=== PATIENT | female | born 1970 | race American Indian/Alaskan Native ===

== ENCOUNTER 2016-10-08 21:23 | Emergency (ER) | payer BC ==
[2016-10-09] MEDS ORDERED: VALIUM PO ONE (01:53)
[2016-10-09] MEDS ORDERED: TORADOL IM ONE (01:53)
--- NOTE | 2016-10-09 02:31 | Emergency Department Report ---
HPI - General Chief Complaint: Extremity Injury, Lower Time Seen by Provider: 10/09/16 01:20 - HPI HPI: 45-year-old female presents today with right calf muscle tenderness pelvis stepping off her doorstep. Patient states that she was stepping off her doorstep when she felt her muscle stretching and walking. Denies history of similar symptoms. Denies swelling. The patient describes her pain as a 4 out of 10 at rest and a 10 out of 10 with flexion of foot. Patient states that she has muscle spasms that come and go. Denies numbness, weakness, paresthesias. Denies fever, chills, nausea, vomiting, chest pain, shortness of breath, abdominal pain. Patient has history of hypertension and states that she currently takes lisinopril/HCTZ. Denies use of oral contraceptives, prolonged inactivity, history of blood clots or family history of blood clots. ED Past Medical Hx - Past Medical History Hx Hypertension: Yes - Surgical History Additional Surgical History: csection, tubal ligation - Social History Smoking Status: Never Smoker Substance Use Type: None ED Review of Systems ROS: Stated complaint: MUSCLE SPASMS Other details as noted in HPI Constitutional: denies: chills, fever, malaise Eyes: denies: eye pain ENT: denies: ear pain, throat pain, congestion Respiratory: denies: cough, shortness of breath, wheezing Cardiovascular: denies: chest pain, palpitations Endocrine: no symptoms reported Gastrointestinal: denies: abdominal pain, nausea, vomiting Musculoskeletal: myalgia Neurological: denies: headache, weakness, numbness, paresthesias Physical Exam - Physical Exam Vital Signs: Vital Signs 10/08/16 10/09/16 23:06 02:18 Temperature 98.9 F Pulse Rate 81 Respiratory 16 18 Rate Blood Pressure 141/90 O2 Sat by Pulse 100 Oximetry Physical Exam: GENERAL: The patient is well-developed and well-nourished. Patient is in NAD. HEAD: Normocephalic. Atraumatic. CHEST/LUNGS: Clear to auscultation throughout. HEART/CARDIOVASCULAR: Regular rate and rhythm. No murmurs, rubs or gallops. ABDOMEN: Abdomen is soft, nontender. No guarding or rebound tenderness. RIGHT LOWER EXTREMITY: Tenderness to palpation of proximal aspect of right calf. No edema or ecchymosis noted. The deformity noted. Normal sensation. Peripheral pulses intact. Capillary refill less than 2 seconds. ED Course Vital Signs 10/08/16 10/09/16 23:06 02:18 Temperature 98.9 F Pulse Rate 81 Respiratory 16 18 Rate Blood Pressure 141/90 O2 Sat by Pulse 100 Oximetry ED Medical Decision Making - Lab Data Vital Signs 10/08/16 10/09/16 23:06 02:18 Temperature 98.9 F Pulse Rate 81 Respiratory 16 18 Rate Blood Pressure 141/90 O2 Sat by Pulse 100 Oximetry - Medical Decision Making 45-year-old female presents today with right calf tenderness. Patient was given Valium and Toradol and reports minimal symptomatic relief. Consulted with Dr. Bermudez. A order form for Doppler ultrasound has been provided to the patient. Patient is recommended to have the ultrasound performed in the morning. Patient states that she will wait in the waiting room until 7 AM for the ultrasound. Patient is in no acute distress at this time. Critical care attestation.: If time is entered above; I have spent that time in minutes in the direct care of this critically ill patient, excluding procedure time. ED Disposition Clinical Impression: Calf tenderness Disposition: DISCHARGED TO HOME OR SELFCARE Is pt being admited?: No Does the pt Need Aspirin: No Condition: Stable Instructions: Deep Venous Thrombosis (ED), Muscle Strain (ED) Additional Instructions: Doppler ultrasound order form has been provided. Return to the emergency department at 7 AM for a right lower extremity Doppler ultrasound. Follow-up with primary care provider. Return to the emergency department if symptoms worsen. Referrals: FARHAT PERALTA MD [Primary Care Provider] - 3-5 Days Forms: Work/School Release Form(ED) Time of Disposition: 04:51
[2016-10-09 05:19] VITALS: BP 123/83
== END 2016-10-09 05:20 | disposition home or self-care (01) ==
LOC: ED 21:23
DX: M79.604 Pain in right leg (principal); M79.1 Myalgia; I10 Essential (primary) hypertension
CPT/HCPCS: 96372; 99282; J1885

== ENCOUNTER 2016-10-09 07:50 | Outpatient (CLI) | payer BC ==
--- NOTE | 2016-10-10 08:22 | Vascular Lab Report ---
Right Lower Extremity Venous Duplex Study: Reason for Exam: Leg pain. Comments on the Right: All veins visualized are freely compressible without evidence of internal echogenicity. Flow is spontaneous and phasic throughout. No evidence of acute or chronic thrombus is seen in any of the vessels visualized. Comments on the Left: A limited duplex study was done of the proximal veins of the left lower extremity. All veins visualized are freely compressible without evidence of internal echogenicity. Flow is spontaneous and phasic throughout. No evidence of acute or chronic thrombus is seen in any of the vessels visualized. Impression: No evidence of acute or chronic deep venous thrombosis in the right lower extremity.
== END 2016-10-09 07:51 | disposition home or self-care (01) ==
LOC: VAS 07:50
PROVIDERS: ATTEND Physician Assistant Medical
DX: M79.604 Pain in right leg (principal)